=== PATIENT | female | born 1950 | race Caucasian/White ===

== ENCOUNTER 2024-01-16 18:23 | Emergency (ER) | payer MEDICARE, OTHER, SELFPAY ==
[2024-01-16] VITALS (8 sets, daily range): BP systolic 102–116; BP diastolic 62–74; BMI 26.5
[2024-01-16 18:52] LABS: % Eosinophils 0.7 % (0-6); % Immature Granulocytes 0.3 % (0-0.5); Absolute Eosinophils 0.1 10^3/uL (0-0.7); Nucleated Red Blood Cells % 0 %
[2024-01-16 19:01] LABS: % Basophils 0.3 % (0-2); % Monocytes 7.2 % (1.7-9.3); % Neutrophils 77.5 % (42.2-75.2); Absolute Lymphocytes 1.3 10^3/uL (1.2-3.4); Absolute Monocytes 0.7 10^3/uL (0.1-0.6); Absolute Neutrophils 7.4 10^3/uL (1.4-6.5); Hematocrit 34.1 % (37.0-47.0); Hemoglobin 11.4 g/dL (12.0-16.0); Mean Corp Hgb Conc. 33.4 g/dL (33.0-37.0); Mean Corpuscular Hgb 29.3 pg (27.0-31.0); Mean Corpuscular Volume 87.7 fL (81.0-99.0); Mean Platelet Volume 10.8 fL (7.4-10.4); Platelet Count 353 10^3/uL (130-400); Red Blood Cell Count 3.89 10^6/uL (4.20-5.40); Red Cell Dist. Width 13.5 % (11.5-14.5); White Blood Cell Count 9.6 10^3/uL (4.8-10.8)
[2024-01-16 20:12] LABS: Blood Urea Nitrogen 10 mg/dl (7-17); Calcium 9.8 mg/dl (8.4-10.2); Carbon Dioxide 27 mmol/L (22-30); Chloride 98 mmol/L (98-107); Estimated Creatinine Clearance 76 ml/min; Glucose 104 mg/dl (70-99); Sodium 136 mmol/L (135-145); eGFR > 60.00
[2024-01-16 20:29] LABS: Lipase 50 U/L (23-300)
--- NOTE | 2024-01-16 20:45 | ED.GENMED ---
History of Present Illness
General
Chief Complaint: Abdominal Symptoms
Source: patient, spouse and family
Exam Limitations: none
Time Seen by Provider: 01/16/24 19:25
Nursing documentation reviewed up to this point in time: agreed with
History of Present Illness
History of Present Illness:
73-year-old female presenting to the emergency department today with concerns of abdominal discomfort over the past 2 months after she had a cholecystectomy 2 months ago at [facility]. She also had a complication with an abscess and had a drain at
the time. She has had intermittent chills and subjective fevers. Has had nausea no vomiting no changes in bowel movements.
Review of Systems
Review of Systems
Allergies reviewed?: Yes
All Other Systems: ROS reviewed and negative except as documented in HPI and ROS
Phy Exam
Physical Exam
Physical Exam:
GENERAL: Alert , in no apparent distress
EYE: pupils equal and reactive
NECK: Supple, no significant adenopathy.
ENT: o/p clr, mmm.
CARDIAC: Regular rate and rhythm .
LUNGS: Clear breath sounds bilaterally, no acute respiratory distress, no wheezes/rales/rhonchi
ABDOMEN: Diffuse abdominal pain no inflammation or abnormalities to the patient's surgical incisions
NEUROLOGICAL: Alert and oriented, no focal neuro deficits
SKIN: Warm and dry, skin intact.
MUSCULOSKELETAL: No edema, well perfused.
PSYCH: Normal and appropriate interaction.
Course
Orders/Labs/Results
Orders:
Orders
01/16/24 18:46
Complete Blood Count/With Diff Urgent
01/16/24 19:34
Basic Metabolic Panel Urgent
Lipase Urgent
01/16/24 20:19
CT Abd/Pel (IV only)-[facility] only Urgent
Comment:
Reason For Exam: diffuse abd pain , marissa 2 months ago, abscess at
01/16/24 20:58
Urinalysis Reflex To Culture Urgent
Date Specimen was Collected: 01/16/24
Time Specimen was Collected: 20:57
01/16/24 22:40
CMP [Comprehensive Metabolic Panel] Urgent
01/16/24 23:22
Clindamycin HCl [Cleocin] 450 mg PO NOW STA
Abnormal Lab Results
01/16/24 01/16/24 01/16/24
18:46 19:34 22:40
RBC 3.89 L 10^6/uL
(4.20-5.40)
Hgb 11.4 L g/dL
(12.0-16.0)
Hct 34.1 L %
(37.0-47.0)
MPV 10.8 H fL
(7.4-10.4)
Absolute Neuts (auto) 7.4 H 10^3/uL
(1.4-6.5)
Absolute Monos (auto) 0.7 H 10^3/uL
(0.1-0.6)
Neutrophils % 77.5 H %
(42.2-75.2)
Lymphocytes % 14.0 L %
(20.5-51.1)
Sodium 133 L mmol/L
(135-145)
Chloride 97 L mmol/L
(98-107)
Creatinine 0.5 L mg/dL 0.5 L mg/dL
(0.6-1.0) (0.6-1.0)
Glucose 104 H mg/dl
(70-99)
01/16/24 18:46
01/16/24 22:40
Vital Signs
Initial and Last Documented VS:
Initial Vital Signs
Temp Pulse Resp BP Pulse Ox
98.5 F 70 18 109/74 97
01/16/24 18:32 01/16/24 18:32 01/16/24 18:32 01/16/24 18:32 01/16/24 18:32
Last Documented Vital Signs
Temp Pulse Resp BP Pulse Ox
98.5 F 86 23 103/68 96
01/16/24 18:32 01/16/24 22:45 01/16/24 22:45 01/16/24 22:00 01/16/24 22:45
MDM/Problems Addressed
MDM/Problems Addressed:
73-year-old female presenting to the emergency department today with concerns of diffuse abdominal pain persistent over the past 2 months had previous cholecystectomy with complication of abscess and requiring drain at the time 2 months ago. Upon
arrival here vital signs are normal patient is afebrile no white count additional labs unremarkable. CT scan was ordered showing abscess extending from gastritis Case discussed with general surgery recommending antibiotics. Patient was given
information for follow-up and otherwise stable for discharge afebrile normal LFTs no white count. Return precautions given.
*Critical Care Note
Total Time (30-74mins, 75-104mins- exclusive of procedures): Not Applicable
ED Attending Note
-
Portions of this chart may have been created with voice recognition software.� Occasional wrong word or��sound alike� substitutions may have occurred due to the inherent limitations of voice recognition software.
Discharge Plan
Departure
Patient Disposition: Home (Routine Discharge)
Date of Disposition: 01/16/24
Time of Disposition: 23:24
Patient with high blood pressure during this ER visit?: No
Condition: Good
Covid-19: Not Applicable
Discharge Problem:
Abdominal wall abscess
Instructions: Abdominal Pain
Prescriptions:
New
clindamycin HCl 150 mg capsule
450 mg PO TID 7 Days Qty: 63 0RF
Referrals:
Rocio Treadwell MD [Family Provider] -
Indio Hilton MD [Active] - Follow up in 5-7 days
Activity Restrictions/Additional Instructions:
You came to the emergency department today with concerns of ongoing abdominal pain. You are found to have an abdominal wall abscess. Please take the clindamycin and follow-up closely with the general surgeon. Return to the emergency department
for any worsening, new or concerning symptoms.
Interventions
Interventions:
*Risk Screen - Suicide Last Done: 01/16/24 19:21
*General Assessment Last Done: 01/16/24 19:21
*Neglect/Abuse Screening Last Done: 01/16/24 19:21
*ED COVID-19 Vaccine History Last Done: 01/16/24 19:21
XX-Zvxaqa-Zjncqdzwfr Assessment Last Done: 01/16/24 19:39
Discharge Date and Time
Print Language: FIJIAN
[2024-01-16 21:13] LABS: Urine Albumin Negative (Neg - Trace); Urine Bilirubin Negative (Negative); Urine Character Clear (Clear); Urine Color Yellow; Urine Glucose Negative (Negative); Urine Ketone Negative (Negative); Urine Leukocyte Negative (Negative); Urine Nitrite Negative (Negative); Urine Occult Blood Negative (Negative); Urine Specific Gravity 1.005 (<1.030); Urine Urobilinogen Negative (Neg - 1+)
[2024-01-16 23:00] LABS: ALT (SGPT) 12 U/L (0-35); AST (SGOT) 19 U/L (14-36); Albumin 3.5 g/dl (3.5-5.0); Alkaline Phosphatase 71 U/L (38-126); Blood Urea Nitrogen 9 mg/dl (7-17); Calcium 9.3 mg/dl (8.4-10.2); Carbon Dioxide 28 mmol/L (22-30); Chloride 97 mmol/L (98-107); Estimated Creatinine Clearance 76 ml/min; Glucose 99 mg/dl (70-99); Sodium 133 mmol/L (135-145); Total Bilirubin 0.8 mg/dl (0.2-1.3); Total Protein 6.5 g/dl (6.3-8.2); eGFR > 60.00
[2024-01-16] MEDS: CLEOCIN 450 MG PO (23:37)
== END 2024-01-16 23:39 | disposition home or self-care (01) ==
LOC: EMR 18:23
PROVIDERS: Emergency Medicine; Physician Assistant; EMERGENCY PHYSICIAN Emergency Medicine; FAMILY PHYSICIAN Family Medicine
DX: L02.211 Cutaneous abscess of abdominal wall (principal); R10.84 Generalized abdominal pain; R11.0 Nausea; K21.9 Gastro-esophageal reflux disease without esophagitis; Z90.49 Acquired absence of other specified parts of digestive tract; Z88.6 Allergy status to analgesic agent; Z88.1 Allergy status to other antibiotic agents; Z88.0 Allergy status to penicillin
CPT/HCPCS: 99285; 74177; 80048; 80053; 81003; 83690; 85025; Q9967

== ENCOUNTER → 2024-01-26 07:24 | Outpatient (REF) | payer MEDICARE, OTHER, SELFPAY ==
[2024-01-26 07:50] VITALS: BP 109/64; BP_SYST 85
[2024-01-26 09:36] VITALS: BP 102/66
== END ==
LOC: RADI 07:24
PROVIDERS: ATTENDING PHYSICIAN Surgery; FAMILY PHYSICIAN Family Medicine
DX: K65.1 Peritoneal abscess (principal); Z90.49 Acquired absence of other specified parts of digestive tract
CPT/HCPCS: 76380

== ENCOUNTER → 2024-02-12 12:27 | Outpatient (REF) | payer MEDICARE, OTHER, SELFPAY | LOC: HWRAD 12:27 | PROVIDERS: ATTENDING PHYSICIAN Surgery; FAMILY PHYSICIAN Family Medicine | DX: L02.211 Cutaneous abscess of abdominal wall (principal) | CPT/HCPCS: 74177; Q9967 ==

== ENCOUNTER → 2024-02-19 14:39 | Outpatient (REF) | payer MEDICARE, OTHER, SELFPAY ==
[2024-02-19 18:01] LABS: Erythrocyte Sed Rate 103 mm/hour (0-20)
== END ==
LOC: REG 14:39
PROVIDERS: ATTENDING PHYSICIAN Student in an Organized Health Care Education/Training Program; FAMILY PHYSICIAN Family Medicine; REFERRING PHYSICIAN Surgery
DX: L02.211 Cutaneous abscess of abdominal wall (principal)
CPT/HCPCS: 36415; 85652; 86140

== ENCOUNTER → 2024-03-17 13:44 | Outpatient (REF) | payer MEDICARE, OTHER, SELFPAY | LOC: HWRAD 13:44 | PROVIDERS: ATTENDING PHYSICIAN Student in an Organized Health Care Education/Training Program; FAMILY PHYSICIAN Family Medicine | DX: L02.91 Cutaneous abscess, unspecified (principal) | CPT/HCPCS: 74177; Q9967 ==